=== PATIENT | female | born 1930 | race Two or more races ===

== ENCOUNTER 2017-09-11 14:43 | Inpatient (IN) | payer MEDICARE, OTHER ==
[~2017-09-11] VITALS: Ht 157.5 cm; Wt 75.3 kg
[~2017-09-11 14:43] MED LIST: AMLO5TAB2 PO; ARIP2TAB9 PO; ASPI81TA2 PO; ATOR40TA PO; BIMA2.5D5 EACHEYE; BRIM5DRO3 EACHEYE; CARV12.52 PO; CLON0.1T PO; CLOP75TA2 PO; DEXL60CA3 PO; DONE5TAB34 PO; DORZ10DR EACHEYE; FERR325T6 PO; FOLI1TAB16 PO; HYDR-3658 PO; HYDR-4076 PO; INSU100I4 SQ; INSU100V7 SQ; LEVO500T15 PO; LOSA50TA21 PO; METH2.5T PO; QUET25TA PO; [UNRECOGNIZED DRUG - CODE] EACHEYE
--- NOTE | 2017-09-11 14:51 | NUR ---
[id number] FROM HOME: NEAR SYNCOPE S/P MOVING BOWEL. PLACED ON MONITOR AWAITING MD ORDER
--- NOTE | 2017-09-11 15:31 | NUR ---
DYLON #20 IV ACCESS. BLOOD SAMPLE COLLECTED SENT TO LAB
[2017-09-11 15:44] LABS: CALCIUM, SERUM 8.7 mg/dL (8.5-10.1); CARBON DIOXIDE 27 mmol/L (21-32); CHLORIDE 103 mmol/L (98-107); CREATININE 0.8 mg/dL (0.6-1.3); GLUCOSE 207 mg/dL (74-106); POTASSIUM 4.1 mmol/L (3.5-5.1); SODIUM SERUM 139 mmol/L (136-145); UREA NITROGEN, BLOOD 20 mg/dL (7-18)
[2017-09-11 15:51] LABS: TROPONIN I 0.049 ng/mL (0.00-0.056)
[2017-09-11 15:54] LABS: BASOPHILS % (AUTO) 0.1 % (0.0-2.0); EOSINOPHILS % (AUTO) 0.2 % (0.0-6.0); HEMATOCRIT 37 % (33-45); HEMOGLOBIN 12.4 g/dL (11.5-14.8); LYMPHOCYTES # (AUTO) 1.2 /CMM (0.8-4.8); LYMPHOCYTES % (AUTO) 10.3 % (20.0-44.0); MEAN CORPUSCULAR HEMOGLOBIN 33 PG (26.0-33.0); MEAN CORPUSCULAR HGB CONC 34 g/dl (31.0-36.0); MEAN CORPUSCULAR VOLUME 98 fL (82-100); MONOCYTES # (AUTO) 0.5 /CMM (0.1-1.30); NEUTROPHILS # (AUTO) 10.3 /CMM (1.8-8.9); NEUTROPHILS % (AUTO) 85.4 % (43.0-81.0); PLATELET COUNT (AUTO) 169 /CMM (150-450); RDW COEFFICIENT OF VARIATION 13.9 (11.5-15.0); RED BLOOD CELL COUNT(AUTO) 3.79 MIL/uL (4.0-5.2); WHITE BLOOD COUNT (AUTO) 12.1 K/uL (4.3-11.0)
[2017-09-11 16:03] LABS: APPEARANCE,URINE TURBID (CLEAR); BILIRUBIN,URINE NEGATIVE (NEGATIVE); BLOOD, URINE 1+ Ery/uL (NEGATIVE); KETONES,URINE NEGATIVE (NEGATIVE); LEUKOCYTE ESTERASE ,URINE 3+ (NEGATIVE); NITRITE, URINE NEGATIVE (NEGATIVE); PROTEIN,URINE 2+ mg/dl (NEGATIVE); UGLUCOSE NEGATIVE (NEGATIVE); UROBILINOGEN,URINE 0.2 EU/dL (0.2)
[2017-09-11 16:05] LABS: COLOR,URINE PINK (YELLOW)
[2017-09-11 16:27] LABS: BACTERIA,URINE Many /HPF (None Seen); WBC,URINE 51-80 /HPF (0-3)
[2017-09-11 16:28] LABS: SQUAMOUS EPITHELIAL CELL,UR Few /HPF (None Seen)
[2017-09-11] MEDS ORDERED: IV NS 0.9% 500 ML BAG IV ONE (16:30)
--- NOTE | 2017-09-11 16:53 | NUR ---
RM 108
[2017-09-11] MEDS ORDERED: MAGNESIUM HYDROXIDE 30 ML UDC PO PRN (17:00)
[2017-09-11] MEDS ORDERED: ONDANSETRON HCL/PF 4 MG/2 ML VIAL IVP PRN (17:00)
[2017-09-11] MEDS ORDERED: PILOCARPINE 4% EACHEYE SCH (17:00)
[2017-09-11] MEDS ORDERED: DEXTROSE 50%-WATER 50 ML DISP.SYRIN IV PRN (17:00)
[2017-09-11] MEDS ORDERED: DORZOLAMIDE OPTH 2% 10 ML BOTTLE EACHEYE SCH (17:00)
[2017-09-11] MEDS ORDERED: HYDROCODONE/APAP 10/325MG 1 EA TABLET PO PRN (17:00)
[2017-09-11] MEDS ORDERED: Z GUARD REMEDY 2 OZ OINT TP PRN (17:00)
[2017-09-11] MEDS ORDERED: ZOLPIDEM TARTRATE 5 MG TABLET PO PRN (17:00)
[2017-09-11] MEDS ORDERED: ACETAMINOPHEN 325 MG TABLET PO PRN (17:00)
[2017-09-11] MEDS ORDERED: NITROFURANTOIN/NITROFURAN MAC 100 MG CAPSULE ONE (17:00)
[2017-09-11] MEDS ORDERED: LOSARTAN POTASSIUM 50 MG TABLET PO SCH (17:00)
[2017-09-11] MEDS ORDERED: NITROFURANTOIN/NITROFURAN MAC 100 MG CAPSULE PO ONE (17:00)
[2017-09-11] MEDS ORDERED: MAG HYDROX/AL HYDROX/SIMETH 30 ML UDC PO PRN (17:00)
[2017-09-11] MEDS ORDERED: QUETIAPINE FUMARATE 25 MG TABLET PO SCH (17:00)
[2017-09-11] MEDS ORDERED: METHOTREXATE SODIUM (2.5MG) 2.5 MG TABLET PO SCH (17:00)
[2017-09-11] MEDS ORDERED: *INSULIN REGULAR(HUMULIN R)HUM 100 UNIT/ML VIAL SQ PRN (17:00)
--- NOTE | 2017-09-11 17:05 | NUR ---
REPORT GIVEN TO [facility] [employer] CAPTAIN SYNCOPE DX DR QUEVEDO ADMITTING ROOM 108
--- NOTE | 2017-09-11 17:10 | NUR ---
REPORT CALLED TO SAPNA MERINO FOR ALIE.
[2017-09-11] MEDS: BLOOD SUGAR DIAGNOSTIC 1 EACH STRIP VI SCH ×2 (17:30→21:45)
[2017-09-11 18:00] VITALS: BP 181/72
[2017-09-11] MEDS ORDERED: BIMATOPROST 2.5 ML DROPS OP SCH (18:00)
[2017-09-11] MEDS: INSULIN REGULAR, HUMAN 100 UNIT/ML 3 ML VIAL SQ PRN ×2 (18:52→21:42)
--- NOTE | 2017-09-11 19:45 | NUR ---
RN INITIAL NOTE RECEIVED PT IN NO ACUTE DISTRESS IN BED. PT IS A/O X 2 AND ABLE TO MAKE NEEDS KNOWN. PT IS ON RA AND TOLERATING WELL WITH O2 SAT @ 98%. PT IS ON TELE WITH SR ON THE MONITOR. PT NOT C/O ANY SOB, DIFFICULTY BREATHING OR PAIN AT THIS TIME. PT HAS R HAND 20G THAT IS CLEAN DRY INTACT AND PATENT WITH SALINE FLUSH. IV IS SALINE LOCKED. BED IN LOW LOCK POSITION WITH RIALS UP X 2. CALL LIGHT WITHIN REACH AND ALL SAFETY MEASURES ENSURED AND CARRIED OUT. WILL CONTINUE TO MONITOR PT.
[2017-09-11 20:00] VITALS: BP 164/79
[2017-09-11] MEDS ORDERED: DOCU250C89 PO (20:23)
[2017-09-11] MEDS ORDERED: SODI1TAB3 PO (20:23)
[2017-09-11] MEDS ORDERED: MEMA7CAP PO (20:23)
[2017-09-11] MEDS ORDERED: LEVO88TA5 PO (20:23)
[2017-09-11] MEDS ORDERED: RISP0.5T20 PO (20:23)
[2017-09-11] MEDS ORDERED: LEVE500T9 PO (20:23)
[2017-09-11] MEDS: SULFAMETH/TRIMETH 800/160 MG 1 UDTAB TABLET PO SCH (21:33)
[2017-09-11] MEDS: CARVEDILOL 12.5 MG TABLET PO SCH (21:33)
[2017-09-11] MEDS: LEVETIRACETAM (250 MG) 250 MG TABLET PO SCH (21:34)
[2017-09-11] MEDS: risperiDONE 0.25 MG TABLET PO SCH (21:34)
[2017-09-11] MEDS: ATORVASTATIN 40 MG TABLET PO SCH (21:35)
[2017-09-11] MEDS: INSULIN DETEMIR 100 UNIT/ML CARTRIDGE SQ SCH (21:40)
[2017-09-11] MEDS: SODIUM CHLORIDE 1000 MG TABLET.SOL PO SCH (21:46)
[2017-09-11] MEDS ORDERED: INSULIN GLARGINE HUM REC ANLOG 27 UNIT SQ SCH (22:00)
[2017-09-11] MEDS ORDERED: ATORVASTATIN 40 MG TABLET PO SCH (22:00)
[2017-09-12] VITALS (8 sets, daily range): BP systolic 140–165; BP diastolic 38–79
[2017-09-12] MEDS ORDERED: LORA0.5T PO (04:16)
[2017-09-12 04:31] LABS: BASOPHILS # (AUTO) 0.1 /CMM (0.0-0.2); BASOPHILS % (AUTO) 0.5 % (0.0-2.0); EOSINOPHILS # (AUTO) 0.1 /CMM (0.0-0.7); EOSINOPHILS % (AUTO) 1.2 % (0.0-6.0); HEMATOCRIT 34 % (33-45); HEMOGLOBIN 11.6 g/dL (11.5-14.8); LYMPHOCYTES # (AUTO) 1.8 /CMM (0.8-4.8); LYMPHOCYTES % (AUTO) 14.9 % (20.0-44.0); MEAN CORPUSCULAR HEMOGLOBIN 33 PG (26.0-33.0); MEAN CORPUSCULAR HGB CONC 34 g/dl (31.0-36.0); MEAN CORPUSCULAR VOLUME 98 fL (82-100); MONOCYTES # (AUTO) 0.6 /CMM (0.1-1.30); MONOCYTES % (AUTO) 4.7 % (2.0-12.0); NEUTROPHILS # (AUTO) 9.5 /CMM (1.8-8.9); NEUTROPHILS % (AUTO) 78.7 % (43.0-81.0); PLATELET COUNT (AUTO) 173 /CMM (150-450); RED BLOOD CELL COUNT(AUTO) 3.51 MIL/uL (4.0-5.2); WHITE BLOOD COUNT (AUTO) 12.1 K/uL (4.3-11.0)
[2017-09-12 04:51] LABS: CALCIUM, SERUM 8.7 mg/dL (8.5-10.1); CARBON DIOXIDE 26 mmol/L (21-32); CHLORIDE 104 mmol/L (98-107); CREATININE 0.9 mg/dL (0.6-1.3); GLUCOSE 124 mg/dL (74-106); MAGNESIUM 1.9 mg/dL (1.8-2.4); PHOSPHORUS 3.6 mg/dL (2.5-4.9); POTASSIUM 4.3 mmol/L (3.5-5.1); SODIUM SERUM 139 mmol/L (136-145); UREA NITROGEN, BLOOD 27 mg/dL (7-18)
[2017-09-12 05:01] LABS: THYROID STIMULATING HORMONE 3.139 uIU/mL (0.358-3.74)
[2017-09-12] MEDS: IV NS 0.9% 1,000 ML IV PRN ×2 (06:36→20:44)
--- NOTE | 2017-09-12 07:18 | NUR ---
RN NOTE PT REMAINS IN NO ACUTE DISTRESS IN BED. PT DID NOT HAVE ANY SIGNIFICANT CHANGE IN CONDITION DURING SHIFT. ALL NEEDS MET, ALL ORDERS CARRIED OUT. WILL ENDORSE CARE TO AM RN FOR CONTINUITY OF CARE.
[2017-09-12] MEDS: BLOOD SUGAR DIAGNOSTIC 1 EACH STRIP VI SCH ×4 (07:30→21:17)
[2017-09-12] MEDS: INSULIN ASPART HUMALOG/NOVOLOG 100 UNIT/ML CARTRIDGE SQ SCH ×3 (07:30→17:30)
[2017-09-12] MEDS: DOCUSATE SODIUM 250 MG CAPSULE PO SCH ×2 (08:24→17:29)
[2017-09-12] MEDS: FOLIC ACID 1 MG TABLET PO SCH (08:25)
[2017-09-12] MEDS: FERROUS SULFATE (325 MG) 325 MG/TAB TABLET PO SCH ×2 (08:25→17:29)
[2017-09-12] MEDS: risperiDONE 0.25 MG TABLET PO SCH ×2 (08:27→17:29)
[2017-09-12] MEDS: CARVEDILOL 12.5 MG TABLET PO SCH ×2 (08:27→17:29)
[2017-09-12] MEDS: LEVETIRACETAM (250 MG) 250 MG TABLET PO SCH ×2 (08:27→21:16)
[2017-09-12] MEDS: LEVOTHYROXINE SODIUM 88 MCG TABLET PO SCH (08:28)
[2017-09-12] MEDS: PANTOPRAZOLE 40 MG TABLET.DR PO SCH (08:29)
[2017-09-12] MEDS: ASPIRIN 81 MG TAB.CHEW PO SCH (08:29)
[2017-09-12] MEDS: LOSARTAN POTASSIUM 50 MG TABLET PO SCH ×2 (08:30→17:29)
[2017-09-12] MEDS: MEMANTINE HCL 5 MG TABLET PO SCH (08:33)
[2017-09-12] MEDS: SODIUM CHLORIDE 1000 MG TABLET.SOL PO SCH ×3 (08:34→17:30)
[2017-09-12] MEDS: CLOPIDOGREL BISULFATE 75 MG TABLET PO SCH (08:38)
[2017-09-12] MEDS: SULFAMETH/TRIMETH 800/160 MG 1 UDTAB TABLET PO SCH ×2 (08:59→17:27)
[2017-09-12] MEDS ORDERED: QUETIAPINE FUMARATE 25 MG TABLET PO SCH (09:00)
[2017-09-12] MEDS ORDERED: FERROUS SULFATE (325 MG) 325 MG/TAB TABLET PO SCH (09:00)
[2017-09-12] MEDS ORDERED: DONEPEZIL 5 MG TABLET PO SCH (09:00)
[2017-09-12] MEDS ORDERED: Medication Not On Formulary EA (Memantine HCl (Namenda Xr) 7 MG) PO SCH (09:00)
[2017-09-12] MEDS ORDERED: ARIPIPRAZOLE 2 MG TABLET PO SCH ×2 (09:00)
[2017-09-12] MEDS ORDERED: CLOPIDOGREL BISULFATE 75 MG TABLET PO SCH (09:00)
[2017-09-12] MEDS ORDERED: Medication Not On Formulary EA (Dexlansoprazole (Dexilant) 1 CAP) PO SCH (09:00)
[2017-09-12] MEDS: INSULIN REGULAR, HUMAN 100 UNIT/ML 3 ML VIAL SQ PRN (17:36)
--- NOTE | 2017-09-12 19:00 | NUR ---
RN NOTE PT REMAINED STABLE, UNABLE TO COOPERATE FOR PHYSICAL THERAPY, PT REFUSED PT, UNABLE TO CHECK ORTHOSTATIC BP DUE TO PT UNABLE TO STAND UP. PT'S DAUGHTER REQUESTED PT TO BE DISCHARGED TOMORROW, 09/13/17 BEFORE NOON, WITH AMBULANCE AND STAIR CHAIR SINCE PT LIVES WITH FAMILY ON SECOND FLOOR. BRUSH PAINTER IS AWARE, AND WILL ARRANGE. WILL ENDORSE TO HUMAN SERVICES INSTRUCTOR NURSE .
--- NOTE | 2017-09-12 19:15 | NUR ---
RN INITIAL NOTES RECEIVED PATIENT IN BED, SLEEPING COMFORTABLY, AROUSABLE WITH VERBAL AND TACTILE STIMULI. PATIENT IS PANAMANIAN SPEAKER, NEEDS ANTICIPATED AND MET AT THIS TIME. REPOSITIONED FOR COMFORT AND SAFETY. PATIENT IS ON ROOM AIR, NO DISTRESS. SR ON TELE, HR OF 83. PATIENT WITH BILATERAL SOFT WRIST RESTRAINTS IN PLACE, CIRCULATION AND SKIN INTEGRITY CHECKED. R HAND G20, FLUSHED AND KEPT PATENT, IVF ORDERED, NO SIGNS OF INFILTRATION NOR PHLEBITIS. SAFETY AND COMFORT ENSURED. BED IN LOW AND LOCKED POSITION. BED ALARM IN PLACE. WILL MONITOR CLOSELY.
--- NOTE | 2017-09-12 21:00 | NUR ---
RN NOTES PATIENT'S DAUGHTER LAST AT BEDSIDE. UPDATED WITH PLAN OF CARE NEEDED. LAST INQUIRED WITH THE PATIENT'S MEDICATIONS, AND CORRECTED PATIENT'S INSULIN DOSAGE NOTED. REASSURED PATIENT'S DAUGHTER NEEDED THAT MED RECON WILL BE REVIEWED, PATIENT'S DAUGHTER CALMED DOWN. PATIENT MED RECON REVIEWED NECESSARY PER HOME MED LIST PROVIDED. UPDATED MED RECON ACCORDINGLY. WILL F/UP WITH MD.
[2017-09-12] MEDS: ATORVASTATIN 40 MG TABLET PO SCH (21:16)
[2017-09-12] MEDS: INSULIN DETEMIR 100 UNIT/ML CARTRIDGE SQ SCH (21:24)
--- NOTE | 2017-09-12 23:30 | NUR ---
RN NOTES DR. SHAH, ERIC ON-CALL, IN THE UNIT. INFORMED MD OF THE PATIENT'S DAUGHTER CONCERNS WITH REGARDS TO THE MED RECON DONE WITH CORRECTIONS MADE. INFORMED MD THAT THE MED RECON IN THE SYSTEM HAS BEEN UPDATED ACCORDINGLY PER THE PATIENT'S DAUGHTER HOME MED LIST. PER DR. SHAH, F/UP WITH PRIMARY MD IN AM HE IS NOT MADE AWARE WHETHER CHANGES WERE MADE BY PRIMARY MD ON THE HOME MEDS. NOTED. CN MADE AWARE. WILL ENDORSE ACCORDINGLY.
[2017-09-13] VITALS: BP 152/53
[2017-09-13 04:00] VITALS: BP_SYST 122; BP_SYST 173; BP_DIAS 57; BP_DIAS 58; BP_DIAS 87
[2017-09-13 06:27] LABS: BASOPHILS % (AUTO) 0.2 % (0.0-2.0); EOSINOPHILS % (AUTO) 0.3 % (0.0-6.0); HEMATOCRIT 34 % (33-45); HEMOGLOBIN 11.8 g/dL (11.5-14.8); LYMPHOCYTES # (AUTO) 0.8 /CMM (0.8-4.8); LYMPHOCYTES % (AUTO) 4.9 % (20.0-44.0); MEAN CORPUSCULAR HEMOGLOBIN 34 PG (26.0-33.0); MEAN CORPUSCULAR HGB CONC 34 g/dl (31.0-36.0); MEAN CORPUSCULAR VOLUME 98 fL (82-100); MONOCYTES # (AUTO) 0.8 /CMM (0.1-1.30); MONOCYTES % (AUTO) 4.9 % (2.0-12.0); NEUTROPHILS # (AUTO) 13.8 /CMM (1.8-8.9); NEUTROPHILS % (AUTO) 89.7 % (43.0-81.0); PLATELET COUNT (AUTO) 159 /CMM (150-450); RDW COEFFICIENT OF VARIATION 13.9 (11.5-15.0); WHITE BLOOD COUNT (AUTO) 15.3 K/uL (4.3-11.0)
--- NOTE | 2017-09-13 06:34 | NUR ---
RN CLOSING NOTES PATIENT WITH NO ACUTE DISTRESS OBSERVED OVERNIGHT. PATIENT SLEPT COMFORTABLY. BILATERAL SOFT WRIST RESTRAINTS IN PLACE, CIRCULATION AND SKIN INTEGRITY CHECKED, BEHAVIOR OF PULLING OUT LINES MINIMIZED AND CONTROLLED. IVF ORDERED. ALL DUE MEDS GIVEN ORDERED. AM LABS DRAWN. PATIENT'S NEEDS ANTICIPATED AND MET. SAFETY AND COMFORT ENSURED. TURNED AND REPOSITIONED. BED IN LOW AND LOCKED POSITION. CALL LIGHT IN REACH. WILL ENDORSE ACCORDINGLY FOR CONTINUITY OF CARE.
[2017-09-13 06:53] LABS: ALANINE AMINOTRANSFERASE 48 U/L (12-78); ALBUMIN 3.1 g/dL (3.4-5.0); ALKALINE PHOSPHATASE 83 U/L (46-116); ASPARTATE AMINOTRANSFERASE 32 U/L (15-37); BILIRUBIN,TOTAL 0.5 mg/dL (0.2-1.0); CALCIUM, SERUM 8.6 mg/dL (8.5-10.1); CARBON DIOXIDE 23 mmol/L (21-32); CHLORIDE 102 mmol/L (98-107); CREATININE 0.7 mg/dL (0.6-1.3); GLUCOSE 126 mg/dL (74-106); MAGNESIUM 1.7 mg/dL (1.8-2.4); PHOSPHORUS 2.6 mg/dL (2.5-4.9); POTASSIUM 4.1 mmol/L (3.5-5.1); SODIUM SERUM 135 mmol/L (136-145); TOTAL PROTEIN, SERUM 6.9 g/dL (6.4-8.2); UREA NITROGEN, BLOOD 21 mg/dL (7-18)
[2017-09-13 08:00] VITALS: BP 139/70
[2017-09-13] MEDS: LEVOTHYROXINE SODIUM 88 MCG TABLET PO SCH (08:28)
[2017-09-13] MEDS: SULFAMETH/TRIMETH 800/160 MG 1 UDTAB TABLET PO SCH (08:28)
[2017-09-13] MEDS: FOLIC ACID 1 MG TABLET PO SCH (08:28)
[2017-09-13] MEDS: PANTOPRAZOLE 40 MG TABLET.DR PO SCH (08:28)
[2017-09-13] MEDS: CLOPIDOGREL BISULFATE 75 MG TABLET PO SCH (08:29)
[2017-09-13] MEDS: ASPIRIN 81 MG TAB.CHEW PO SCH (08:29)
[2017-09-13] MEDS: FERROUS SULFATE (325 MG) 325 MG/TAB TABLET PO SCH (08:29)
[2017-09-13] MEDS: DOCUSATE SODIUM 250 MG CAPSULE PO SCH (08:29)
[2017-09-13] MEDS: risperiDONE 0.25 MG TABLET PO SCH (08:29)
[2017-09-13] MEDS: LEVETIRACETAM (250 MG) 250 MG TABLET PO SCH (08:29)
[2017-09-13 08:30] VITALS: BP 131/70
[2017-09-13] MEDS: SODIUM CHLORIDE 1000 MG TABLET.SOL PO SCH ×2 (08:30→12:44)
[2017-09-13] MEDS: MEMANTINE HCL 5 MG TABLET PO SCH (08:30)
[2017-09-13] MEDS: INSULIN ASPART HUMALOG/NOVOLOG 100 UNIT/ML CARTRIDGE SQ SCH ×2 (08:30→11:50)
[2017-09-13] MEDS: LOSARTAN POTASSIUM 50 MG TABLET PO SCH (08:30)
[2017-09-13] MEDS: CARVEDILOL 12.5 MG TABLET PO SCH (08:30)
[2017-09-13] MEDS: BLOOD SUGAR DIAGNOSTIC 1 EACH STRIP VI SCH ×2 (08:30→11:51)
[2017-09-13] MEDS: Magnesium 1GM/D5W 100ML PREMIX 100 ML IV SCH ×2 (10:47→11:50)
[2017-09-13] MEDS: INSULIN REGULAR, HUMAN 100 UNIT/ML 3 ML VIAL SQ PRN (11:51)
[2017-09-13] MEDS ORDERED: SULF1TAB3 PO (13:22)
--- NOTE | 2017-09-13 13:23 | NUR ---
SERGING MACHINE OPERATOR AUTOMATIC NOTE IV DC'D. REVIEWED UTI INSTRUCTIONS AND MED REC W/ DTR. HOMEHEALTH ARRANGED BY INDUCTION HEATING EQUIPMENT SETTER. TRANSPORTED BY VIA AMBUILANCE TO HOME. BACTRIM RX SENT TO [facility] BY DR. TRAN. REEVES.
[2017-09-14] MEDS ORDERED: METHOTREXATE SODIUM (2.5MG) 2.5 MG TABLET PO SCH (09:00)
== END 2017-09-13 13:26 | disposition home health service (06) | DRG 73 ==
LOC: ER 14:46 → TELE1 16:57
PROVIDERS: ADMIT Family Medicine; ATTEND Family Medicine
DX: G90.8 Other disorders of autonomic nervous system (principal); I21.4 Non-ST elevation (NSTEMI) myocardial infarction; B96.1 Klebsiella pneumoniae [K. pneumoniae] as the cause of diseases classified elsewhere; E83.42 Hypomagnesemia; E11.9 Type 2 diabetes mellitus without complications; D50.9 Iron deficiency anemia, unspecified; N39.0 Urinary tract infection, site not specified; D72.829 Elevated white blood cell count, unspecified; F03.90 Unspecified dementia, unspecified severity, without behavioral disturbance, psychotic disturbance, mood disturbance, and anxiety; E78.5 Hyperlipidemia, unspecified; I25.2 Old myocardial infarction; I25.10 Atherosclerotic heart disease of native coronary artery without angina pectoris; Z87.440 Personal history of urinary (tract) infections; Z98.61 Coronary angioplasty status; Z79.4 Long term (current) use of insulin; I11.9 Hypertensive heart disease without heart failure
CPT/HCPCS: 36415; 71010-TC; 74000-TC; 80048-TC; 80053-TC; 80061-TC; 81000-TC; 82272-TC; 82728-TC; 82962-TC; 83540-TC; 83735-TC; 84100-TC; 84439-TC; 84443-TC; 84484-TC; 85025-TC; 87086-TC; 87186-TC; 93307-TC; 93880-TC; A4606; J1815; J3475; J7030; J7050; Z7610